=== PATIENT | male | born 1950 | race Caucasian/White ===

== ENCOUNTER → 2019-12-06 10:46 | Outpatient (CLI) | payer SELFPAY ==
--- NOTE | ~2019-12-06 | XR_ITS ---
XR lumbar spine 2-3V DATE: 12/06/2019 11:20 INDICATION: Lumbosacral radiculitis. Sciatic neuritis. TECHNIQUE: AP, lateral, coned lateral lumbosacral views COMPARISON: None FINDINGS: There is mild dextroscoliosis of the thoracolumbar spine. There are extensive degenerative changes of the lower thoracic and lumbar spine. There are compression fracture deformities of L1 and L2, likely chronic. There is severe degenerative disc disease at L1-2, L2-3. There is moderately severe degenerative disc disease at L4-5. The sacroiliac joints are unremarkable. There is calcification of the abdominal aorta and iliac arteries. IMPRESSION: Compression fracture deformities of L1 and L2, likely chronic ] Severe degenerative changes, especially at L1-2, L2-3 Reviewed, dictated and finalized at location B.
--- NOTE | ~2019-12-06 | XR_ITS ---
XR pelvis 1-2V DATE: 12/06/2019 11:20 INDICATION: Lumbosacral radiculitis, sciatic neuritis TECHNIQUE: AP pelvis COMPARISON: None FINDINGS: No pelvic fracture or bone destruction is detected. The sacroiliac joints and pubic symphy sis are intact. Hip joint spaces are symmetric and relatively preserved. Degenerative changes of th e lumbar/lumbosacral spine. IMPRESSION: No significant abnormality of pelvis Reviewed, dictated and finalized at location B.
== END ==
DX: M54.17 Radiculopathy, lumbosacral region (principal); M54.30 Sciatica, unspecified side; M48.56XA Collapsed vertebra, not elsewhere classified, lumbar region, initial encounter for fracture
CPT/HCPCS: 72100; 72170

== ENCOUNTER → 2022-01-14 13:01 | Outpatient (CLI) | payer MEDICARE, SELFPAY ==
--- NOTE | ~2022-01-14 | CT_ITS ---
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 High resolution computed tomography (CT) of the left ankle was performed without intravenous contr ast. Additional sagittal and coronal reconstructions were performed. Automated exposure control and i terative reconstruction technique were employed. 2. High resolution CT of the left foot was performed without intravenous contrast. Additional sagitta l and coronal reconstructions were performed. Automated exposure control and iterative reconstruction technique were employed. The dose-length product was 245.26 mGy-cm. The dose-length product for the combined procedure was was 245.26 mGy-cm. COMPARISON: None FINDINGS: Chronic nonunited fracture extending obliquely across the base of the medial malleolus with smooth co rticated margins. There is an additional chronic appearing ununited fracture extending across the lat eral malleolus. Advanced secondary osteoarthritis at the tibiotalar joint with remodeling and loss of bone stock and extensive subarticular cystlike changes along the medial half of the tibial plafond a nd and juxtaposed medial side of the talar dome. This results in varus angulation at the ankle joint. There are multiple small bone fragments in the recess of the tibiotalar joint which could represent either fragments related to the fractures or due to subsequent fragmentation of the articular surface s. Additional mild to moderate polyarticular osteoarthritis at the remaining joints in the midfoot, the first metatarsophalangeal joint and multiple interphalangeal joints. There are lucent lesions within sclerotic margins both at the medial and lateral malleolar fragments which could represent either sec ondary degenerative cystlike changes or chronic erosions. Multiple additional lucent lesions with thi n sclerotic margins involving all of the tarsal bones and base of the metatarsal with the exception o f the medial cuneiform and first metatarsal. This could be secondary to osteoarthritis although diffe rential would include chronic erosions such as in the setting of gout or other crystalline arthropath y. The second-fifth toes are clawed. No erosions evident at the metatarsophalangeal or interphalangea l joints. There is moderate fatty atrophy of the intrinsic musculature of the foot. Achilles tendinosis with mo derate thickening of the distal 6 cm the tendon. There appears to be a high-grade partial if not comp lete tear of the peroneus longus tendon with the proximal tear margin approximately 2 cm cephalad to the level of the tibiotalar joint line. No ankle joint effusion. IMPRESSION: 1. 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 2. Advanced likely secondary osteoarthritis at the ankle. 3. Additional mild to moderate polyarticular osteoarthritis throughout the right foot. 4. Numerous lytic lesions with thin sclerotic margins involving the medial and lateral malleolar frag ments as well as the majority of the tarsal bones and bases of the metatarsals in the mid and hindfoo t. The lucent lesions appear disproportionate to and not clearly correlated with the degree of joint space narrowing at the joint spaces would favor chronic erosion such as in the setting of gout over e ither degenerative subchondral cysts or chronic erosions related to other inflammatory arthritis such as rheumatoid, reactive or psoriatic arthritis. 5. High-grade partial if not complete tear of the peroneus longus tendon likely occurring at the leve l of a prominent os peroneus with proximal retraction to the couple centimeter above level of the tib iotalar joint line. 6. Moderate distal Achilles tendinosis. Reviewed, dictated and finalized at location A. Electronical
== END ==
PROVIDERS: PCP Physician Assistant
DX: M25.572 Pain in left ankle and joints of left foot (principal); M79.672 Pain in left foot; M79.671 Pain in right foot; M19.072 Primary osteoarthritis, left ankle and foot; M76.62 Achilles tendinitis, left leg
CPT/HCPCS: 73700

== ENCOUNTER 2023-10-02 13:42 | Emergency (ER) | payer MEDICARE, SELFPAY ==
--- NOTE | ~2023-10-02 | XR_ITS ---
[XR ribs RT 2V w CXR 2V ] INDICATION: Right lower rib pain TECHNIQUE: Frontal projection of the upper right ribs, frontal projection of the lower right ribs, ob lique projection of all the right ribs, frontal inspiratory chest x-ray for interpretation. FINDINGS: There are no displaced rib fractures identified. There are no soft tissue abnormality see n. The lungs are clear. There is atherosclerosis and ectasia of the aorta. There is a calcified gra nuloma of the left mid thorax. Severe lower thoracic and upper lumbar spondylosis with compression fr actures of the lumbar spine. IMPRESSION: 1:No acute displaced rib fractures. Reviewed, dictated and finalized at location L. 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
[2023-10-02 14:11] VITALS: BP 151/99; PULSE 83; RESP 18; TEMP 36.2; O2SAT 96
[2023-10-02 14:13] VITALS: BP 151/99; PULSE 83; RESP 18; TEMP 36.2; O2SAT 96
--- NOTE | 2023-10-02 14:38 | ED.FALL ---
HPI - Fall General Chief Complaint: Fall Stated Complaint: fall, rt rib pain Time Seen by Provider: 10/02/23 14:20 Source: patient Mode of arrival: ambulatory Limitations: no limitations History of Present Illness HPI Narrative: Pedro is a 73-year-old male patient presenting to the clinic today with complaints of right anterior rib pain after falling at charge on Friday night. He reports as he began to fall he talked his arm up against his ribs and landed on the right side. Is having pain to the right ribs with inspiration, sneezing, and coughing. Related Data Home Medications Medication Instructions Recorded Confirmed citalopram 20 mg tablet mg 10/02/23 folic acid 1 mg tablet 10/02/23 gabapentin 300 mg capsule mg 10/02/23 meloxicam 7.5 mg tablet mg 10/02/23 methotrexate sodium 2.5 mg tablet mg 10/02/23 tramadol 50 mg tablet mg 10/02/23 Allergies Allergy/AdvReac Type Severity Reaction Status Date / Time No Known Allergies Allergy Verified 10/02/23 14:12 Review of Systems Review of Systems: Pertinent positives per HPI. Patient denies any fever, chills, rash, headache, visual changes, dizziness, cough, runny nose, sore throat, shortness of breath, chest pain, palpitations, nausea, vomiting, diarrhea, constipation, abdominal pain, or any urinary issues. PMFSH Comments At the time of my signature, I reviewed and agree with the nursing past medical, surgical, social, and family history. There is no relevant family history pertinent to the patient complaint. Exam Narrative: General: Well-developed, well nourished, in no apparent distress Head: Normocephalic, atraumatic Eyes: Pupils equally round and reactive to light bilaterally, EOM intact, sclera and conjunctive clear, no discharge, lids normal Ears: TMs intact and clear, ear canals clear, no drainage, grossly hearing normal. Nose: Nares patent, no discharge, no inflammation, no sinus tenderness. Mouth: Oropharynx without lesions or masses, good dentition, MMM. Neck: Supple, trachea midline, no enlargement of anterior or posterior cervical nodes, no thyroid masses or goiter palpable. Chest: No obvious bruising or swelling, even rise and fall of the chest wall with respirations, tender to palpation over the right anterior ribs just below the breast Cardio: Regular rate and rhythm, s1 and s2 normal, no murmur appreciated. Resp: Clear to auscultation bilaterally anteriorly and posteriorly, no rhonchi, rales, wheezing or rubs Course Course Emergency Course: Portions of this record may have been created with voice recognition software. Level of Care: Express Care Visit Vital Signs Vital signs: Vital Signs Temperature 36.2 C L 10/02/23 14:11 Pulse Rate 83 10/02/23 14:11 Respiratory Rate 18 10/02/23 14:11 Blood Pressure 151/99 H 10/02/23 14:11 Pulse Oximetry 96 10/02/23 14:11 Oxygen Delivery Room Air 10/02/23 14:11 Temperature 36.2 C L 10/02/23 14:13 Pulse Rate 83 10/02/23 14:13 Respiratory Rate 18 10/02/23 14:13 Blood Pressure 151/99 H 10/02/23 14:13 Pulse Oximetry 96 10/02/23 14:13 Oxygen Delivery Room Air 10/02/23 14:13 Vital signs reviewed MDM - Fall MDM Narrative Medical decision making narrative: At the time of visit patient is resting comfortably on the exam table. Patient appears to be nontoxic. Diagnostics: X-ray of the right rib shows no acute fracture or displacement of ribs. Plan: supportive measures were discussed with the patient and they voiced understanding discharge instructions and agrees to treatment plan. Return precautions reviewed Differential Diagnosis Differential diagnosis: Likely other (Rib contusion, chest wall pain, pneumothorax, rib fracture, hemo thorax) Imaging Data Radiologist's impression: ITS Impressions Ribs w/Chest X-Ray 10/02/23 14:58 IMPRESSION: 1:No acute displaced rib fractures. Discharge Plan Discharge Clinica
== END 2023-10-02 15:16 | disposition home or self-care (01) ==
PROVIDERS: Emergency Provider Nurse Practitioner Family; PCP Physician Assistant
DX: S20.211A Contusion of right front wall of thorax, initial encounter (principal); Z79.4 Long term (current) use of insulin; Z79.899 Other long term (current) drug therapy; W19.XXXA Unspecified fall, initial encounter
CPT/HCPCS: 71046; 71100; 99213; G0463

== ENCOUNTER 2024-07-04 12:16 | Emergency (ER) | payer MEDICARE, SELFPAY ==
[2024-07-04 12:24] VITALS: BP 152/91; PULSE 78; RESP 18; TEMP 36.5; O2SAT 96
[2024-07-04 12:26] VITALS: BP 152/91; PULSE 78; RESP 18; TEMP 36.5; O2SAT 96
--- NOTE | 2024-07-04 12:33 | ED.SKABFB ---
HPI - Skin/Abscess/Foreign Bdy General Chief complaint: Skin/Abscess/Foreign Body Stated complaint: RT Side thigh infection Time Seen by Provider: 07/04/24 12:33 Source: patient Mode of arrival: ambulatory Limitations: no limitations History of Present Illness HPI narrative: 74-year-old male presents with complaint of redness to right thigh. Patient is concerned for infection. Patient states he has been laying in bed for the past several days due to fatigue. States he was treated for bacterial sinus infection June 15. Took all of antibiotics and is still not feeling better. Reports coughing, chest congestion, generalized fatigue. Afebrile. Patient states that he is incontinent, leak some urine , and thinks this may have caused redness to right thigh. All systems reviewed and negative except as noted above. Related Data Home Medications Medication Instructions Recorded Confirmed citalopram 20 mg tablet mg 10/02/23 folic acid 1 mg tablet 10/02/23 meloxicam 7.5 mg tablet mg 10/02/23 hydrocodone 5 mg-acetaminophen 325 tablet 07/04/24 mg tablet Allergies Allergy/AdvReac Type Severity Reaction Status Date / Time No Known Allergies Allergy Verified 07/04/24 12:25 Review of Systems Review of Systems: CONSTITUTIONAL: Denies fever, chills, or sweats. EYES: Denies visual changes, redness, or discharge. ENT: Reports rhinorrhea, congestion. Denies sore throat, or otalgia. CARDIOVASCULAR: Denies chest pain, palpitations, or edema. RESPIRATORY: reports cough. Denies dyspnea. GASTROINTESTINAL: Denies abdominal pain, nausea, vomiting, or diarrhea. GENITOURINARY: Denies dysuria or hematuria. SKIN: Denies rash or itching. Reports redness, itching, burning to right thigh. MUSCULOSKELETAL: Denies back pain, joint pain, or myalgia. NEUROLOGIC: Denies headache, numbness, or weakness. PSYCHIATRIC: Denies anxiety or depression. All other systems reviewed are negative, except as documented in HPI. PMFSH Comments At time of signature, agree with nursing past medical, surgical, social and family history. There is no relevant family history pertinent to the presenting complaint. Exam Narrative: GENERAL: This is a well-nourished, well-developed patient, in no apparent distress. HEAD: normocephalic, atraumatic. EYES: PERRL. Sclera clear/white. Vision is grossly intact. EARS: External ears normal, auditory canals clear and without drainage, TMs normal without perforation. Hearing grossly intact. NOSE: External nose normal with no obvious nasal discharge, nares without redness, no rhinorrhea. THROAT: Mucous membranes moist, posterior pharynx clear. NECK: Neck supple, non-tender without lymphadenopathy, masses or thyromegaly. CARDIOVASCULAR: Regular rate and rhythm without murmurs, gallops, or rubs. RESPIRATORY: Decreased to bilateral lung romero otherwise clear Breath sounds equal bilaterally. No wheezes, rales, or rhonchi. SKIN: warm, Dry, intact , good texture and turgor. there is a 3 cm area of erythema and swelling to right upper thigh area that is warm to touch. Concern for cellulitis. There is erythema, hyperpigmentation, wet appearance concerning for yeast to bilateral groin area. NEURO: awake, alert, and oriented to person, place and time. There were no obvious focal neurologic abnormalities. EXTREMITIES: No joint tenderness, effusion, or edema noted. Course Course Level of Care: Express Care Visit Vital Signs Vital signs: Vital Signs Temperature 36.5 C 07/04/24 12:24 Pulse Rate 78 07/04/24 12:24 Respiratory Rate 18 07/04/24 12:24 Blood Pressure 152/91 H 07/04/24 12:24 Pulse Oximetry 96 07/04/24 12:24 Oxygen Delivery Room Air 07/04/24 12:24 Temperature 36.5 C 07/04/24 12:26 Pulse Rate 78 07/04/24 12:26 Respiratory Rate 18 07/04/24 12:26 Blood Pressure 152/91 H 07/04/24 12:26 Pulse Oximetry 96 07/04/24 12:26 Oxygen Delivery Room Air 07/04/24 12:26 reviewed MDM - Skin/Abscess/Foreign Bdy MDM Narrative Medical decision making narrative: will treat patient for cellulitis, possible pneumonia with doxycycline. Treatment failure on amoxicillin. Will treat jock itch with terbinafine oral. Patient does not feel that he can apply a antifungal cream. Patient is aware of diagnosis, understands and agrees to treatment plan. Anticipatory guidance given. Patient agrees to follow-up as directed and is aware of reasons to seek care at the emergency department. Portions of this record may have been created with voice recognition software Discharge Plan Discharge Clinical Impression: Upper respiratory infection with cough and congestion, Cellulitis of right thigh, Jock itch Patient Disposition: Home, Self-Care Condition: Stable Instructions: Antibiotic Form, Cellulitis (ED) Additional Instructions: Take medications as prescribed. Continue taking [id number] medication to treat cough and congestion Such as Mucinex DM. Drink at least 64 oz water a day. Clean groin area with soap and water. Pat dry with towel. Change out of soiled/wet undergarments as soon as possible. see your doctor if symptoms not improving. Prescriptions: New doxycycline hyclate 100 mg capsule 100 mg PO BID 7 Days Qty: 14 0RF terbinafine HCl 250 mg tablet 250 mg PO DAILY 21 Days Qty: 21 0RF No Action hydrocodone-acetaminophen 5-325 mg tablet meloxicam 7.5 mg tablet citalopram 20 mg tablet folic acid 1 mg tablet Follow-up/Referrals: Jag Wheeler, OT [Primary Care Provider] - Time of Disposition: 12:42
[2024-07-04 12:48] VITALS: BP 122/77; PULSE 84; RESP 18; TEMP 36.5; O2SAT 99
== END 2024-07-04 12:50 | disposition home or self-care (01) ==
PROVIDERS: Emergency Provider Nurse Practitioner Family; PCP Occupational Therapist
DX: L03.115 Cellulitis of right lower limb (principal); B35.6 Tinea cruris; J06.9 Acute upper respiratory infection, unspecified; R05.9 Cough, unspecified; I10 Essential (primary) hypertension
CPT/HCPCS: 99213; G0463

== ENCOUNTER 2024-12-24 11:39 | Outpatient (CLI) | payer MEDICARE, SELFPAY ==
--- NOTE | ~2024-12-24 | XR_ITS ---
Right Shoulder Technique: AP and scapular Y views were obtained. Clinical History: Pain Findings: No fracture or dislocation is seen. Prior rotator cuff repair surgery noted with suture anc hors of the humeral head. The glenohumeral and acromioclavicular joint spaces are preserved. Soft tis sues are unremarkable. Impression: No acute abnormality. Evidence of prior rotator cuff repair surgery. Reviewed, dictated and finalized at location . Impression: No acute abnormality. Evidence of prior rotator cuff repair surgery.
--- NOTE | ~2024-12-24 | XR_ITS ---
[id number] Ordering provider: Yessenia Candelaria, PA-C History: . Cervicalgia . Comparison: None. FINDINGS: VERTEBRAL BODIES: Anterolisthesis at the level of C3-C4 and C4-C5. Otherwise, Normal height and align ment. No visible fracture or subluxation. The dens is intact. Lucency on the inferior articular process of C5 is most likely summation shadow. DISK SPACES: Narrowing of the disc C4-C5, C5-C6 and C6-C7. Multilevel facet joint disease. Multilevel uncovertebral joint osteoarthritic changes. PARASPINOUS SOFT TISSUES: No prevertebral soft tissue swelling. IMPRESSION: No definite acute osseous abnormality cervical spine. Anterolisthesis at the level of C3-C4: Severe C5. Multilevel degenerative disc disease. Reviewed, dictated and finalized at location A.
== END 2024-12-24 11:40 | disposition home or self-care (01) ==
LOC: MICIMG 11:42
PROVIDERS: PCP Physician Assistant; Visit Provider Physician Assistant
DX: M43.12 Spondylolisthesis, cervical region (principal); M50.31 Other cervical disc degeneration, high cervical region; M50.321 Other cervical disc degeneration at C4-C5 level; Z98.890 Other specified postprocedural states; M25.511 Pain in right shoulder
CPT/HCPCS: 72040; 73030